=== PATIENT | male | born 2000 | race Caucasian/White ===

== ENCOUNTER 2020-12-23 13:47 | Emergency (ER) | payer OTHER ==
[~2020-12-23] VITALS: Ht 177.8 cm; Wt 75.2 kg
[2020-12-23 13:48] VITALS: BP 144/86
--- OUTSIDE RECORDS SUMMARY | 2020-12-23 14:24 | CCD ---
Author Author [facility] Organization [facility] Address Unknown Phone Unavailable Support Name Relationship Address Phone [facility] Next Of Kin [address] [place] [address] Unavailable Re-disclosure Warning The records that you are about to access may contain information from federally-assisted alcohol or drug abuse programs. If such information is present, then the following federally mandated warning applies: This information has been disclosed to you from records protected by federal confidentiality rules (42 CFR part 2). The federal rules prohibit you from making any further disclosure of this information unless further disclosure is expressly permitted by the written consent of the person to whom it pertains or as otherwise permitted by 42 CFR part 2. A general authorization for the release of medical or other information is NOT sufficient for this purpose. The Federal rules restrict any use of the information to criminally investigate or prosecute any alcohol or drug abuse patient.The records that you are about to access may contain highly sensitive health information, the redisclosure of which is protected by Article 27-F of the [facility] Public Health law. If you continue you may have access to information: Regarding HIV / AIDS; Provided by facilities licensed or operated by the [facility] Office of Mental Health; or Provided by the [facility] Office for People With Developmental Disabilities. If such information is present, then the following [facility] mandated warning applies: This information has been disclosed to you from confidential records which are protected by state law. State law prohibits you from making any further disclosure of this information without the specific written consent of the person to whom it pertains, or as otherwise permitted by law. Any unauthorized further disclosure in violation of state law may result in a fine or halfway sentence or both. A general authorization for the release of medical or other information is NOT sufficient authorization for further disc losure. Insurance Providers Payer name Policy type / Coverage type Policy ID Covered libertarian ID Covered libertarian's relationship to teague Policy Teague Plan Information [facility] [employer] [employer] [id number]
[2020-12-23] MEDS ORDERED: AMOXICILLIN 500 MG CAP PO ONE (14:30)
[2020-12-23] MEDS ORDERED: AMOX500C PO (14:31)
== END 2020-12-23 14:38 | disposition home or self-care (01) ==
LOC: M ED 13:47
DX: J02.0 Streptococcal pharyngitis (principal)